=== PATIENT | male | born 1980 | race African-American/Black ===

== ENCOUNTER 2017-10-02 09:34 | Emergency (ER) | payer OTHER ==
[2017-10-02] MEDS: ALBUTEROL 0.083% (NEB) 2.5 MG/3 ML AMP NEB (11:15)
[2017-10-02] MEDS: IPRATROPIUM (NEB) 0.5 MG/2.5 ML AMP NEB (11:15)
[2017-10-02] MEDS: predniSONE 20 MG TAB PO (11:35)
== END 2017-10-02 12:32 | disposition home or self-care (01) ==
LOC: E/R 09:34 → FTE 12:32
DX: J45.901 Unspecified asthma with (acute) exacerbation (principal); F17.210 Nicotine dependence, cigarettes, uncomplicated
CPT/HCPCS: 71045; 94664; 99284-25